=== PATIENT | male | born 1970 | race Caucasian/White ===

== ENCOUNTER 2017-12-25 10:20 | Emergency (ER) | payer OTHER ==
[2017-12-25 11:26] LABS: BASOPHILS % 0.6 (0.0-1.5); MEAN CORPUSCULAR HEMOGLOBIN 32.7 pg (28.0-34.0); MEAN CORPUSCULAR VOLUME 94.4 fl (80.0-100.0); MONOCYTES % 4.8 % (0.0-11.0); NEUTROPHILS # 9.6 # k/uL (1.4-7.7)
[2017-12-25 11:35] LABS: eGFR (African) > 60; eGFR (Non-African) > 60
--- NOTE | 2017-12-25 11:35 | ED Physician Documentation ---
General Adult - HISTORIAN Historian: patient - HPI Stated Complaint: syncopal episodes Chief Complaint: General Adult Onset: days ago (3) Timing: worse Further Comments: yes (47 year old male patient presents with complaint of cough , congestion, body aches and 2 near syncopal episodes yesterday. Patient is not using any OTC medications for his symptoms.) - ROS CONST: fever, recent illness, chills EYES/ENT: nasal drainage, nasal congestion. denies: problems with vision, sore throat CVS/RESP: cough. denies: chest pain, shortness of breath GI/: none MS/SKIN/LYMPH: none NEURO/PSYCH: headache - PAST HX Past History: AMI, hypertension Other History: TIA Allergies/Adverse Reactions: Allergies Allergy/AdvReac Type Severity Reaction Status Date / Time No Known Allergies Allergy Unverified 12/25/17 11:11 - SOCIAL HX Smoking History: cigarettes - FAMILY HX Family History: No - VITAL SIGNS Vital Signs: Vital Signs Temp Pulse Resp BP Pulse Ox 98.2 F 70 16 146/100 96 12/25/17 10:23 12/25/17 11:25 12/25/17 10:23 12/25/17 10:23 12/25/17 11:25 - REVIEWED ASSESSMENTS Nursing Assessment Reviewed: Yes Vitals Reviewed: Yes Progress - EKG/XRAY/CT EKG: rhythm (SR, rate76, compared with 12/17/2012; Right BBB) ED Results Lab/Radiology - Lab Results Lab Results: Lab Results 12/25/17 10:55 WBC 12.00 K/ul K/ul (4.00-12.00) RBC 5.10 M/ul M/ul (3.90-5.20) Hgb 16.7 g/dL g/dL (12.0-18.0) Hct 48.1 % % (37.0-53.0) MCV 94.4 fl fl (80.0-100.0) MCH 32.7 pg pg (28.0-34.0) MCHC 34.7 g/dL g/dL (30.0-36.0) RDW 12.5 % % (11.3-14.3) Plt Count 225 K/mm3 K/mm3 (130-400) Neut % (Auto) 80.1 % H % (39.0-79.0) Lymph % (Auto) 12.6 % L % (16.0-50.0) [place] % (Auto) 4.8 % % (0.0-11.0) Eos % (Auto) 1.0 % % (0.0-6.8) Baso % (Auto) 0.6 (0.0-1.5) Neut # (Auto) 9.6 # k/uL H # k/uL (1.4-7.7) Lymph # (Auto) 1.5 # k/uL # k/uL (0.6-4.0) [place] # (Auto) 0.6 # k/uL # k/uL (0.0-0.9) Eos # (Auto) 0.1 # k/uL # k/uL (0.0-0.6) Baso # (Auto) 0.1 # k/uL # k/uL (0.0-0.5) Reactive Lymphs % 0.9 % % (0.0-5.0) Reactive Lymphs # 0.1 # k/uL # k/uL (0.0-0.8) - Radiology Radiology Impressions: Examination: PA and lateral chest. History: CXR, COUGH X2 DAYS, WITH DYSPNEA (Hx) Comparison exam: None provided. Findings: PA lateral chest demonstrate a normal cardiac and mediastinal silhouette. No focal infiltrate. No blunting of the costophrenic margins. Right lower lung granuloma. Osseous structures are appropriate for age. Impression: No acute pulmonary process. Electronically signed on Dec 25, 2017 11:30:53 AM SHIP SURVEYOR by: Humphrey Mcgee - Orders Orders: ED Orders Category Date Time Status Continuous EKG monitoring Q30M Care 12/25/17 10:55 Active Continuous Pulse Oximetry Q30M Care 12/25/17 10:[address] IV Lock 1T Care 12/25/17 10:55 Active CHEST 2VIEW [RAD] Stat Exams 12/25/17 10:55 Ordered CBC/PLATELET/DIFF Stat Lab 12/25/17 10:55 Completed CMP Stat Lab 12/25/17 10:55 Received RESPIRATORY VIRAL PROFILE Stat Lab 12/25/17 Ordered TROPONIN I (cTnI) Stat Lab 12/25/17 11:01 Received UA W/MICRO IF INDICATED Stat Lab 12/25/17 10:55 Ordered EKG WITH COMPARISON Stat Ther 12/25/17 10:55 Ordered General Adult Physical Exam - PHYSICAL EXAM GENERAL APPEARANCE: mild distress EENT: eye inspection normal, pharynx normal, no signs of dehydration, JONAH, no nystagmus, TM's nml, other (frontal sinus tenderness with palpation) RESPIRATORY: no resp distress, chest non-tender, breath sounds normal CVS: reg rate & rhythm, heart sounds normal, equal pulses, no murmur, no gallop , PMI nml, no JVD, no friction rub, 24 ABDOMEN: soft, no organomegaly, normal bowel sounds, no abdominal bruit, no distension SKIN: normal color, warm/dry, NR, INT, PAL, DR EXTREMITIES: non-tender, normal range of motion, no evidence of injury, no edema , J, [employer] NEURO: oriented X3, CN's nml as tested, motor nml, sensation nml, mood/affect nml Discharge Clincal Impression: Sinusitis Qualifiers: Sinusitis location: frontal Chronicity: acute Recurrence: non-recurrent Qualified Code(s): J01.10 - Acute frontal sinusitis, unspecified Clincal Impression: (Ruled Out): Sinusitis chronic, frontal Referrals: Alba Benitez MD [Primary Care Provider] - 2 Days Additional Instructions: Call the lab 12/26/17 after 2pm for your respiratory viral panel results. [phone] You need to make an appointment with Dr Benitez for a wellness exam. 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 Treat your symptoms with over the counter medication. You may want to try Vicks rub on your chest and/or feet Cough drops as needed for cough and sore throat. Increase your fluid intake juices, hot tea, non-caffeinated beverages Use a humidifier in the room where you sleep. You can also sit in a steam filled bathroom 1-2 times a day. Tylenol or Ibuprofen as needed for fever, pain and body aches. Start daily allergy medication such as Claritin, Erin or Zyrtec. Start a daily nasal spray such as Flonase or Nasonex You may benefit from the use of a netti pot follow package instructions. See your primary care doctor after you have completed your antibiotic if you symptoms have not resolved. Many times it takes multiple rounds of antibiotics to resolve a sinus infection. Condition: Stable Disposition: 01 HOME, SELF-CARE Decision to Admit: NO Decision Time: 12:00
[2017-12-25 12:02] LABS: APPEARANCE,URINE Clear (CLEAR); COLOR,URINE Yellow (YELLOW); OCCULT BLOOD,URINE Trace-intact (NEGATIVE); UROBILINOGEN URINE 0.2 Eu (0.2-1.0)
[2017-12-25 12:31] VITALS: BP 138/91
--- NOTE | 2017-12-25 19:16 | Diagnostic Imaging Report ---
GARTH ROSALES (SPORTS MEDICINE COORDINATOR) - ER [facility] [address] [id number] Report Submission Date: Dec 25, 2017 11:30:53 AM TEAM SPORTS SALES ASSOCIATE Patient Study Name: JAIMEE COATES Date: Dec 25, 2017 11:02:32 AM TEAM SPORTS SALES ASSOCIATE Modality Type: DX Gender: M Description: CHEST : 68 Institution: [facility] Physician: GARTH ROSALES (JULITA) - ER Examination: PA and lateral chest. History: CXR, COUGH X2 DAYS, WITH DYSPNEA (Hx) Comparison exam: None provided. Findings: PA lateral chest demonstrate a normal cardiac and mediastinal silhouette. No focal infiltrate. No blunting of the costophrenic margins. Right lower lung granuloma. Osseous structures are appropriate for age. Impression: No acute pulmonary process. Electronically signed on Dec 25, 2017 11:30:53 AM TEAM SPORTS SALES ASSOCIATE by: Humphrey LANG
[2017-12-26 08:02] LABS: ADENOVIRUS DNA NEGATIVE (NEGATIVE); SOURCE: NASOPHARYNGEAL SWAB
== END 2017-12-25 12:05 | disposition home or self-care (01) ==
LOC: ED 10:20
DX: J01.10 Acute frontal sinusitis, unspecified (principal); I10 Essential (primary) hypertension
CPT/HCPCS: 71046; 80053; 81002; 84484; 85025; 87486; 87581; 87633; 87798; 99283; S1016